=== PATIENT | male | born 1960 | race Caucasian/White ===

== ENCOUNTER 2020-10-22 05:01 | Emergency (ER) | payer OTHER ==
[~2020-10-22] VITALS: Ht 177.8 cm; Wt 74.8 kg
[2020-10-22 07:03] LABS: Albumin 4.2 g/dL (3.4-5.0); Calcium 10.8 mg/dL (8.5-10.1); Potassium 4.4 mmol/L (3.5-5.1)
[2020-10-22 07:05] LABS: BUN/Creatinine Ratio 18.4
[2020-10-22 07:07] LABS: Bilirubin, Total 0.4 mg/dL (0.2-1.0); Total Protein 8.3 g/dL (6.4-8.2)
[2020-10-22 07:08] LABS: Basophils # (auto) 0.1 10 ^3/uL (0-0.2); Basophils % (auto) 0.4 % (0.0-2.0); Eosinophils # (auto) 0.1 10 ^3/uL (0-0.8); Eosinophils % (auto) 0.5 % (0.0-7.0); Hematocrit 46.2 % (41.0-53.0); Hemoglobin 15.8 g/dL (13.5-17.5); Lymphocytes % (auto) 5.9 % (10.0-50.0); Mean Corpuscular Hgb Conc. 34.3 g/dL (32.0-36.0); Mean Corpuscular Volume 84.6 fL (80.0-100.0); Monocytes # (auto) 0.7 10 ^3/uL (0-1.3); Monocytes % (auto) 3.9 % (0.0-12.0); Neutrophils # (auto) 15.4 10 ^3/uL (1.6-8.6); Neutrophils % (auto) 89.3 % (37.0-80.0); Nucleated Red Blood Cells % 0.2 %; Platelet Count (auto) 436 10^3/uL (140-450); Red Blood Cells 5.47 10^6/uL (4.5-5.90); Red Cell Distribution Width 14.4 % (11.8-14.3); White Blood Cell 17.2 10^3/uL (4.4-10.8)
[2020-10-22 07:10] LABS: Urine Bacteria FEW /hpf (None Seen); Urine Blood Negative /uL (Negative); Urine Mucus FEW (None Seen); Urine Specific Gravity 1.024 (1.001-1.035); Urine WBC 1 /hpf (0 - 3)
[2020-10-22] MEDS ORDERED: ONDANSETRON HCL 4 MG/2 ML VIAL IV ONE (08:00)
[2020-10-22] MEDS ORDERED: SODIUM CHLORIDE 0.9% 1,000 ML IV ONE (08:00)
[2020-10-22] MEDS ORDERED: MORPHINE SULFATE 4 MG/ML SYR/VIAL IV ONE (08:00)
[2020-10-22] MEDS ORDERED: SODIUM CHLORIDE 0.9% 1,000 ML IV SCH (09:30)
[2020-10-22] MEDS ORDERED: cefTRIAXone 1GM/50ML D5W 50 ML IV ONE (09:30)
[2020-10-22] MEDS ORDERED: metroNIDAZOLE 500MG/100ML 100 ML IV ONE (09:30)
[2020-10-22 12:00] VITALS: BP 128/85
== END 2020-10-22 13:34 | disposition home or self-care (01) ==
LOC: EDBD 05:01 → ER 05:01
DX: K59.00 Constipation, unspecified (principal); R11.2 Nausea with vomiting, unspecified; Z20.822 Contact with and (suspected) exposure to COVID-19
CPT/HCPCS: 36415; 74176; 80053; 81001; 82150; 83690; 85025; 87040; 87077; 87186; 87205; 87426; 93005; 96361; 96365; 96368; 96375; 99285; C9803; J0696; J2270; J2405; J3490; U0003